=== PATIENT | male | born 1960 | race Two or more races ===

== ENCOUNTER 2018-11-24 10:06 | Inpatient (IN) | payer OTHER ==
--- NOTE | 2018-11-24 10:29 | PDOC ---
*Physical Exam - Vital Signs Last Vital Signs Temp Pulse Resp BP Pulse Ox 98.8 F 98 H 16 111/78 97 11/24/18 10:15 11/24/18 10:15 11/24/18 10:15 11/24/18 10:15 11/24/18 10:15 - Physical Exam Comments: 11/24/18 10:28 The patient was examined by [SARAY Mcnamara] under my direct supervision. I personally evaluated the patient. I concur with the above findings and the plan of care. ED Treatment Course - LABORATORY CBC & Chemistry Diagram: 11/24/18 11:02 11/24/18 11:02 *DC/Admit/Observation/Transfer Diagnosis at time of Disposition: Diverticulitis - Discharge Dispostion Condition at time of disposition: Stable - Referrals - Patient Instructions - Post Discharge Activity
--- NOTE | 2018-11-24 11:13 | PDOC ---
History of Present Illness - General Chief Complaint: Pain, Acute Stated Complaint: ABD PAIN Time Seen by Provider: 11/24/18 10:24 History Source: Patient Exam Limitations: Clinical Condition - History of Present Illness Initial Comments: 11/24/18 11:09 Patient with no significant past medical history present with complaint of midsternal chest pain upon wake this morning which is worse with movement, deep breathing or pressing on the middle of the chest. Denies palpitation, weakness, nausea, vomiting, headache. Reported mild dizziness from pain. Denies any family history of cardiomyopathy. Report that he does a lot of heavy lifting at work. Patient did not take any medication for symptoms. Denies any other symptoms Timing/Duration: other (3 days) Past History - Past Medical History Allergies/Adverse Reactions: Allergies Allergy/AdvReac Type Severity Reaction Status Date / Time No Known Allergies Allergy Verified 11/24/18 10:17 Home Medications: Ambulatory Orders Levothyroxine Sodium [Euthyrox] 175 mcg PO DAILY 11/24/18 COPD: No Thyroid Disease: Yes (HYPO) - Suicide/Smoking/Psychosocial Hx Smoking History: Current every day smoker Number of Cigarettes Smoked Daily: 6 Information on smoking cessation initiated: No Hx Alcohol Use: No Drug/Substance Use Hx: No Review of Systems - Review of Systems Able to Perform ROS?: Yes Is the patient limited French proficient: No Constitutional: No: Chills, Fever, Malaise HEENTM: No: Symptoms Reported Respiratory: No: Symptoms reported, See HPI, Cough, Orthopnea, Shortness of Breath, SOB with Exertion, SOB at Rest, Stridor, Wheezing, Productive cough, Hemoptysis, Other Cardiac (ROS): No: Symptoms Reported, See HPI, Chest Pain, Edema, Irregular Heart Rate, Lightheadedness, Palpitations, Syncope, Chest Tightness, Other ABD/GI: Yes: Symptoms Reported, See HPI, Constipated, Abdominal cramping ( intermittent periumbilical pain). No: Abdominal Distended, Abd. Pain w/ defecation, Blood Streaked Bowels, Difficulty Swallowing, Nausea, Poor Appetite , Poor Fluid Intake, Rectal Bleeding, Vomiting, Indigestion, Tarry Stools : No: Burning, Dysuria, Discharge, Frequency, Flank Pain, Pain, Urgency All Other Systems: Reviewed and Negative *Physical Exam - Vital Signs Last Vital Signs Temp Pulse Resp BP Pulse Ox 98.8 F 98 H 16 111/78 97 11/24/18 10:15 11/24/18 10:15 11/24/18 10:15 11/24/18 10:15 11/24/18 10:15 - Physical Exam Comments: 11/24/18 11:12 GENERAL: Well developed, well nourished. Awake and alert. No acute distress. HEENT: Normocephalic, atraumatic. PERRLA, EOMI. No conjunctival pallor. Sclera are non-icteric. Moist mucous membranes. Oropharynx is clear. NECK: Supple. Full ROM. CARDIOVASCULAR: Regular rate and rhythm. No murmurs, rubs, or gallops. Distal pulses are 2+ and symmetric. PULMONARY: No evidence of respiratory distress. Lungs clear to auscultation bilaterally. No wheezing, rales or rhonchi. ABDOMINAL: Soft. Mild periumbilical and LLQ tenderness on deep palpation. Non-distended. No rebound or guarding. No organomegaly. Normoactive bowel sounds. MUSCULOSKELETAL Normal range of motion at all joints. SKIN: Warm and dry. Normal capillary refill. No rashes. No jaundice. NEUROLOGICAL: Alert, awake, appropriate. Gait is normal without ataxia. PSYCHIATRIC: Cooperative. Good eye contact. Appropriate mood General Appearance: Yes: Nourished, Appropriately Dressed. No: Apparent Distress ED Treatment Course - LABORATORY CBC & Chemistry Diagram: 11/24/18 11:02 11/24/18 11:02 - RADIOLOGY Radiology Studies Ordered: Category Date Time Status ABDOMEN CT WITH CONTRAST* [CT] Stat CT Scan 11/24/18 10:45 Ordered Medical Decision Making - Medical Decision Making 11/24/18 11:10 Patient with no significant past medical history present with complaint of midsternal chest pain upon wake this morning which is worse with movement, deep breathing or pressing on the middle of the chest. Denies palpitation, weakness, nausea, vomiting, headache. Reported mild dizziness from pain. Denies any family history of cardiomyopathy. Report that he does a lot of heavy lifting at work. Patient did not take any medication for symptoms. Denies any other symptoms Clinical exam significant for mild periumbilical tenderness on deep palpation without guarding or rebound otherwise normal exam. Normal cardio and lung exam. Patient afebrile. Symptoms likely constipation versus less likely abdominal mass . UA and urine culture labs ordered. CBC and chemistry lab ordered. Abdominal CT with by mouth contrast ordered to evaluate for abdominal pain 11/24/18 15:02 CBC and chemistry labs shows no acute pathology. Abdominal pelvis CAT scan shows acute diverticulitis. Patient will be admitted for IV antibiotics. Call patient PCP Dr. Valenzuela who agrees to plan and requests patient be started on Zosyn and Flagyl antibiotics and admitted patient to him. Plan discussed with patient and patient agrees with plan. Zosyn 2.25 g IV and Flagyl 500 mg IV ordered. Patient for admission *DC/Admit/Observation/Transfer Diagnosis at time of Disposition: Diverticulitis - Discharge Dispostion Condition at time of disposition: Stable Decision to Admit order: Yes - Referrals - Patient Instructions - Post Discharge Activity
[2018-11-24 11:19] LABS: EPI CELLS 2.2 /HPF (0-5/HPF); HYALINE CASTS 4 /lpf (0-8); PH,URINE 6.5 (5.0-8.0); URINE APPEARANCE CLEAR; URINE BACTERIA 11.5 /hpf (NEGATIVE); URINE BILIRUBIN 1+ (NEGATIVE); URINE COLOR ORANGE; URINE GLUCOSE (UA) NEGATIVE (NEGATIVE); URINE KETONE TRACE (NEGATIVE); URINE LEUK ESTERASE TRACE (NEGATIVE); URINE NITRITE NEGATIVE (NEGATIVE); URINE PROTEIN NEGATIVE (NEGATIVE); URINE RBC 3 /hpf (0-4); URINE WBC 0 /hpf (0-5)
[2018-11-24 11:22] LABS: BASO % 0.5 % (0-2.0); EOS % 0.2 % (0-4.5); HEMOGLOBIN 14.5 GM/dL (11.7-16.9); LYMPH % 9.4 % (8-40); MCH 30.5 pg (25.7-33.7); MCHC 33.7 g/dl (32.0-35.9); MEAN CELL VOLUME 90.6 fl (80-96); MEAN PLT VOLUME 8.2 fl (7.5-11.1); MONO % 8.5 % (3.8-10.2); NEUT % 81.4 % (42.8-82.8); PLATELET COUNT 258 K/MM3 (134-434); RBC 4.74 M/mm3 (4.00-5.60); RDW 13.2 % (11.9-15.9); WHITE BLOOD COUNT 13.2 K/mm3 (4.0-10.0)
[2018-11-24 11:54] LABS: ALBUMIN 3.8 g/dl (3.4-5.0); BILIRUBIN,TOTAL 1.5 mg/dL (0.2-1); BLOOD UREA NITROGEN 15.2 mg/dL (7-18); CALCIUM 9.2 mg/dL (8.5-10.1); POTASSIUM 4.3 mmol/L (3.5-5.1); TOT PROT 7.3 g/dl (6.4-8.2)
[2018-11-24] MEDS ORDERED: PIPERACILLIN/TAZOB 2.25 GM 2.25 GM in DEXTROSE 5%-WATER - 50 ML IVPB ONE (15:00)
[2018-11-24] MEDS ORDERED: PIPERACILLIN/TAZOB 2.25 GM 2.25 GM/50 ML BAG IVPB ONE (15:19)
[2018-11-24 21:20] VITALS: BMI 38.0
[2018-11-24] MEDS ORDERED: ACETAMINOPHEN 325 MG TABLET (FP) PO PRN (22:14)
[2018-11-24] MEDS: DEXTROSE 5%-0.45% SALINE 1,000 ML IV SCH (22:47)
[2018-11-25] MEDS ORDERED: PIPERACILLIN/TAZOBACTAM 2.25 GM VIAL IVPB ONE ×2 (01:18→09:04)
[2018-11-25] MEDS ORDERED: DEXTROSE 5%-WATER - 50 ML IVPB ONE ×2 (01:18→09:04)
[2018-11-25] MEDS ORDERED: PIPERACILLIN/TAZOB 2.25 GM 2.25 GM in DEXTROSE 5%-WATER - 50 ML IVPB SCH (02:00)
[2018-11-25 08:04] LABS: BLOOD UREA NITROGEN 13.1 mg/dL (7-18); CALCIUM 8.4 mg/dL (8.5-10.1); CREATININE 0.8 mg/dL (0.55-1.3); POTASSIUM 3.8 mmol/L (3.5-5.1)
[2018-11-25] MEDS: DEXTROSE 5%-0.45% SALINE 1,000 ML IV SCH (09:46)
--- NOTE | 2018-11-25 09:46 | HP ---
DATE OF ADMISSION: 11/24/2018 DATE OF DICTATION: 11/25/2018 This is a 58-year-old male known to have hypothyroidism, came to the emergency room yesterday with fever, chest pain, abdominal pain of 3 days' duration, started on Thursday. He was also constipated. In the ER it was found out that he got left sigmoid colon diverticulitis so got admitted. This morning he says fever is gone, pain is better. He is on IV antibiotics and kept n.p.o. PHYSICAL EXAMINATION: Vital Signs: BP 120/80. Temperature 101 when he came in, this morning is 99.2. Pulse 75, respirations 20. HEENT: Unremarkable. Neck: Supple. No JVD. Lungs: Clear. Heart: S1, S2 normal. Abdomen: Soft. There is tenderness and minimal guarding on the left lower quadrant. No rebound tenderness. Legs: No edema. Neurologic: Examination grossly normal. Rectal: Examination not done. LABORATORY REPORTS: WBC 13, hemoglobin 14.5, hematocrit 43, platelets 258. Chemistry: Sodium 140, potassium 3.8, chloride 106, BUN 13, creatinine 0.8. AST, ALT normal. CT of the abdomen showed left lower sigmoid colon diverticulitis. No abscess, no free fluid. DIAGNOSES: 1. Diverticulitis. 2. Hypothyroidism. PLAN: IV antibiotics. Will start on full liquid diet. Will follow. Ramses [id number]
[2018-11-25] MEDS ORDERED: AMPICILLIN NA/SULBACTAM NA 1.5 GM in SODIUM CHLORIDE 100 ML IVPB SCH (10:00)
[2018-11-25] MEDS ORDERED: SODIUM CHLORIDE 100 ML IVPB ONE ×2 (12:46→17:04)
[2018-11-25] MEDS ORDERED: AMPICILLIN NA/SULBACTAM NA 1.5 GM VIAL ONE ×2 (12:46→17:04)
[2018-11-25] MEDS: AMPICILLIN NA/SULBACTAM NA 1.5 GM in SODIUM CHLORIDE 100 ML IVPB SCH ×2 (12:49→17:45)
--- NOTE | 2018-11-25 13:40 | CON.GI ---
Consult Consult Specialty:: GI consult covering Dr Lew Reason for Consultation:: Diverticulitis - History of Present Illness History of Present Illness: 58 y/o male PMHx of hypothyroidism had 3 day history of lower abdominal pain associated with fever and constipation. He went to the ED and was diagnosed to have diverticultitis. He enver had a colonoscopy before. He denies nausea, vomiting, diarrhea and rectal bleeding. CT scan revealed acute sigmoid diverticulitis without abscess formation. - Alcohol/Substance Use Hx Alcohol Use: No - Smoking History Smoking history: Current every day smoker Have you smoked in the past 12 months: Yes Aproximately how many cigarettes per day: 6 Home Medications - Allergies Allergies/Adverse Reactions: Allergies Allergy/AdvReac Type Severity Reaction Status Date / Time No Known Allergies Allergy Verified 11/24/18 10:17 - Home Medications Home Medications: Ambulatory Orders Levothyroxine Sodium [Euthyrox] 175 mcg PO DAILY 11/24/18 Physical Exam-GI Vital Signs: Vital Signs Temperature 99.6 F 11/25/18 09:00 Pulse Rate 75 11/25/18 09:00 Respiratory Rate 18 11/25/18 09:00 Blood Pressure 106/67 11/25/18 09:00 O2 Sat by Pulse Oximetry (%) 96 11/24/18 21:00 Constitutional: Yes: Well Nourished Eyes: Yes: Conjunctiva Clear, Occular Prosthesis Neck: Yes: Supple Cardiovascular: Yes: Regular Rate and Rhythm Respiratory: Yes: CTA Bilaterally ...Palpate: Yes: Soft, Tenderness (-- suprapubic area). No: Firm/Rigid, Guarding, Hepatomegaly, Mass, Pulsatile Mass, Splenomegaly Labs: CBC, BMP 11/24/18 11:02 11/25/18 06:45 Problem List - Problems (1) Acute diverticulitis Assessment/Plan: R>IV hydration IV antibiotics for colonoscopy in [address] Lew will follow the patient Code(s): K57.92 - DVTRCLI OF INTEST, PART UNSP, W/O PERF OR ABSCESS W/O BLEED
[2018-11-26] MEDS ORDERED: AMPICILLIN NA/SULBACTAM NA 1.5 GM VIAL ONE ×2 (00:54→09:58)
[2018-11-26] MEDS ORDERED: SODIUM CHLORIDE 100 ML IVPB ONE ×2 (00:54→09:59)
[2018-11-26] MEDS: AMPICILLIN NA/SULBACTAM NA 1.5 GM in SODIUM CHLORIDE 100 ML IVPB SCH ×2 (02:47→10:03)
[2018-11-26] MEDS: DEXTROSE 5%-0.45% SALINE 1,000 ML IV SCH (02:47)
[2018-11-26] MEDS ORDERED: LEVOTHYROXINE NA 150 MCG TABLET PO SCH (07:00)
[2018-11-26 08:12] LABS: HEMATOCRIT 37.3 % (35.4-49); HEMOGLOBIN 12.8 GM/dL (11.7-16.9); MCH 30.9 pg (25.7-33.7); MCHC 34.2 g/dl (32.0-35.9); MEAN CELL VOLUME 90.2 fl (80-96); MEAN PLT VOLUME 7.8 fl (7.5-11.1); PLATELET COUNT 240 K/MM3 (134-434); RBC 4.13 M/mm3 (4.00-5.60); WHITE BLOOD COUNT 7.7 K/mm3 (4.0-10.0)
[2018-11-26 10:59] VITALS: BP 120/72; PULSE 66; TEMP 98.1
== END 2018-11-26 12:49 | disposition home or self-care (01) | DRG 392 ==
LOC: JER 10:06 → JERBED 15:04 → J8W 20:58
PROVIDERS: ADMIT Internal Medicine; ATTEND Internal Medicine
DX: K57.92 Diverticulitis of intestine, part unspecified, without perforation or abscess without bleeding (principal); E03.9 Hypothyroidism, unspecified; F17.210 Nicotine dependence, cigarettes, uncomplicated
CPT/HCPCS: 36415; 74177-TC; 80048; 80053; 81003; 85025; 85027; 87086; 99285-25; Q9967

== ENCOUNTER 2021-09-24 07:36 | Emergency (ER) | payer OTHER ==
[2021-09-24 07:51] VITALS: BMI 39.4
[2021-09-24] MEDS ORDERED: SODIUM CHLORIDE 1,000 ML IV STA (08:07)
[2021-09-24] MEDS ORDERED: ACETAMINOPHEN 1000 MG/100 ML BAG IVPB ONE (08:07)
[2021-09-24] MEDS ORDERED: ACETAMINOPHEN INJECTION 100 ML IVPB ONE (08:25)
[2021-09-24 10:12] LABS: BASO % 0.5 % (0-2.0); EOS % 1.3 % (0-4.5); HEMOGLOBIN 14.1 GM/dL (11.7-16.9); LYMPH % 11.2 % (8-40); MCH 29.7 pg (25.7-33.7); MCHC 33.7 g/dl (32.0-35.9); MONO % 10.4 % (3.8-10.2); NEUT % 76.6 % (42.8-82.8); PLATELET COUNT 309 10^3/uL (134-434); RBC 4.77 M/mm3 (4.00-5.60); RDW 13.2 % (11.9-15.9)
[2021-09-24 10:41] LABS: URINE APPEARANCE CLEAR; URINE BILIRUBIN NEGATIVE (NEGATIVE); URINE COLOR DK YELLOW; URINE GLUCOSE (UA) NEGATIVE (NEGATIVE); URINE KETONE TRACE (NEGATIVE); URINE LEUK ESTERASE NEGATIVE (NEGATIVE); URINE NITRITE NEGATIVE (NEGATIVE); URINE PROTEIN TRACE (NEGATIVE)
[2021-09-24 10:43] LABS: ALBUMIN 3.6 g/dl (3.4-5.0)
[2021-09-24 10:44] LABS: BLOOD UREA NITROGEN 13.1 mg/dL (7-18)
[2021-09-24 10:46] LABS: CREATININE 0.9 mg/dL (0.55-1.3)
[2021-09-24 10:48] LABS: BILIRUBIN,TOTAL 0.6 mg/dL (0.2-1); TOT PROT 7.3 g/dl (6.4-8.2)
[2021-09-24 11:58] VITALS: BP 118/71; PULSE 71; TEMP 97.8
== END 2021-09-24 12:07 | disposition home or self-care (01) ==
LOC: JER 07:36
PROC: 3E033GC Introduction of Other Therapeutic Substance into Peripheral Vein, Percutaneous Approach (ICD-10-PCS; principal; 2021-09-24)
DX: K57.32 Diverticulitis of large intestine without perforation or abscess without bleeding (principal)
CPT/HCPCS: 36415; 74176-TC; 80053; 81003; 83690; 85025; 87086; 99285-25